=== PATIENT | female | born 1970 | race Caucasian/White ===

== ENCOUNTER 2025-07-17 17:54 | Emergency (ER) | payer OTHER ==
[~2025-07-17] VITALS: Ht 160 cm; Wt 108.9 kg
[2025-07-17] MEDS ORDERED: ACETAMINOPHEN 325 MG TABLET ONE (18:39)
[2025-07-17] MEDS ORDERED: HYDROCODONE/APAP 5/325MG TABLET ONE (18:42)
[2025-07-17] MEDS: ACETAMINOPHEN 325 MG TABLET PO ONE (18:47)
[2025-07-17] MEDS: HYDROCODONE/APAP 7.5/325MG 1 EACH TABLET PO ONE (18:47)
[2025-07-17] MEDS ORDERED: HYDR-3976 GT (20:32)
[2025-07-17 20:49] VITALS: BP 126/74; TEMP 98; O2SAT 97
== END 2025-07-17 20:49 | disposition home or self-care (01) ==
LOC: ER 18:00
DX: T14.8XXA Other injury of unspecified body region, initial encounter (principal); M25.552 Pain in left hip; M54.50 Low back pain, unspecified; M79.672 Pain in left foot; Z88.0 Allergy status to penicillin; W18.30XA Fall on same level, unspecified, initial encounter; Y93.K1 Activity, walking an animal; Y92.89 Other specified places as the place of occurrence of the external cause; Y99.8 Other external cause status
CPT/HCPCS: 72100-TC; 73700-TC